=== PATIENT | male | born 1985 | race African-American/Black ===

== ENCOUNTER 2016-07-23 11:02 | Inpatient (IN) | payer OTHER ==
[2016-07-23 15:01] VITALS: BMI 22.8
--- NOTE | 2016-07-23 19:27 | HP ---
COWS - Scale Resting Pulse: 1= [place] 81-100 Sweatin= Chills/Flushing Restless Observation: 1= Difficult to Sit Still Pupil Size: 0= Normal to Room Light Bone or Joint Aches: 2= Severe Diffuse Aches Runny Nose/ Eye Tearin= Runny Nose/Eyes GI Upset > 30mins: 2= Nausea/Diarrhea Tremor Observation: 2= Slight Tremor Visible Yawning Observation: 2= >3x During Session Anxiety or Irritability: 2=Irritable/Anxious Goose Flesh Skin: 0=Smooth Skin COWS Score: 15 Admission ROS S - HPI Chief Complaint: WITHDRAWAL SX Allergies/Adverse Reactions: Allergies Allergy/AdvReac Type Severity Reaction Status Date / Time penicillin G Allergy Severe Hives Verified 07/23/16 17:17 chlorpromazine HCl Allergy Verified 07/23/16 19:26 [From Thorazine] haloperidol [From Haldol] Allergy Verified 07/23/16 19:26 haloperidol lactate Allergy Verified 07/23/16 19:26 [From Haldol] History of Present Illness: 31 YEARS OLD MALE WITH LONG HISTORY OF OPIOID MARIJUANA NICOTINE DEPENDENCE DENIES MEDICAL ISSUE HAS BIPOLAR II IS ADMITTED TO DETOX Exam Limitations: No Limitations - Ebola screening Have you traveled outside of the country in the last 21 days: No Have you had contact with anyone from an Ebola affected area: No Have you been sick,other than usual withdrawal symptoms: No Do you have a fever: No - Review of Systems Constitutional: Chills, Loss of Appetite, Changes in sleep, Unintentional Wgt. Loss, Unexplained wgt Loss EENT: reports: No Symptoms Reported Respiratory: reports: No Symptoms reported Cardiac: reports: No Symptoms Reported GI: reports: Nausea, Poor Appetite, Poor Fluid Intake, Abdominal cramping : reports: No Symptoms Reported Musculoskeletal: reports: Back Pain, Joint Pain, Muscle Pain, Neck Pain Integumentary: reports: No Symptoms Reported Neuro: reports: Tremors Endocrine: reports: No Symptoms Reported Hematology: reports: No Symptoms Reported Psychiatric: reports: Judgement Intact, Orientated x3, Anxious, Depressed Other Systems: Reviewed and Negative Patient History - Patient Medical History Hx Anemia: No Hx Asthma: No Hx Chronic Obstructive Pulmonary Disease (COPD): No Hx Cancer: No Hx Cardiac Disorders: No Hx Congestive Heart Failure: No Hx Hypertension: No Hx Hypercholesterolemia: No Hx Pacemaker: No HX Cerebrovascular Accident: No Hx Seizures: No Hx Dementia: No Hx Diabetes: No Hx Gastrointestinal Disorders: No Hx Liver Disease: No Hx Genitourinary Disorders: No Hx Sexually Transmitted Disorders: No Hx Renal Disease (ESRD): No Hx Thyroid Disease: No Hx Human Immunodeficiency Virus (HIV): No Hx Hepatitis C: No Hx Depression: No Hx Suicide Attempt: No Hx Bipolar Disorder: Yes Hx Schizophrenia: No - Patient Surgical History Past Surgical History: No Hx Neurologic Surgery: No Hx Cataract Extraction: No Hx Cardiac Surgery: No Hx Lung Surgery: No Hx Breast Surgery: No Hx Breast Biopsy: No Hx Abdominal Surgery: No Hx Appendectomy: No Hx Cholecystectomy: No Hx Genitourinary Surgery: No Hx Orthopedic Surgery: No - PPD History Previous Implant?: Yes Documented Results: Negative w/o proof Implanted On Prior R Admission?: No PPD to be Administered?: Yes - Smoking Cessation Smoking history: Current every day smoker Have you smoked in the past 12 months: Yes Aproximately how many cigarettes per day: 10 Cigars Per Day: 0 Hx Chewing Tobacco Use: No Initiated information on smoking cessation: Yes 'Breaking Loose' booklet given: 07/23/16 - Substance & Tx. History Hx Alcohol Use: No Hx Substance Use: Yes Substance Use Type: Heroin, Marijuana, Opiates Hx Substance Use Treatment: Yes - Substances Abused Heroin Route: Inhalation Frequency: Daily Amount used: 6-7 bags Age of first use: 31 Date of Last Use: 07/22/16 Marijuana Route: Smoking Frequency: Daily Amount used: $20 Age of first use: 19 Date of Last Use: 07/22/16 Family Disease History - Family Disease History Family Disease History: Heart Disease: Mother, Other: Father (NO CONTACT) Admission Physical Exam BHS - Vital Signs Vital Signs: Vital Signs - 24 hr 07/23/16 14:59 Temperature 98 F Pulse Rate 85 Respiratory 20 Rate Blood Pressure 121/69 - Physical General Appearance: Yes: Appropriately Dressed, Mild Distress, Thin, Tremorous, Irritable, Sweating, Anxious HEENTM: Yes: Hearing grossly Normal, Normal ENT Inspection, Normocephalic, Normal Voice Respiratory: Yes: Chest Non-Tender, Lungs Clear, Normal Breath Sounds, No Respiratory Distress, No Accessory Muscle Use Neck: Yes: Supple, Trachea in good position Breast: Yes: Breasts Symetrical Cardiology: Yes: Regular Rhythm, Regular Rate, S1, S2 Abdominal: Yes: Non Tender, Soft, Increased Bowel Sounds Genitourinary: Yes: Within Normal Limits Back: Yes: Normal Inspection Musculoskeletal: Yes: full range of Motion, Gait Steady, Back pain, Muscle Pain Extremities: Yes: Normal Inspection, Normal Range of Motion, Non-Tender, Tremors Neurological: Yes: Fully Oriented, Alert, Motor Strength 5/5, Normal Response, Depressed Affect Integumentary: Yes: Warm Lymphatic: Yes: Within Normal Limits - Diagnostic (1) Opioid dependence with withdrawal Current Visit: Yes Status: Acute (2) Nicotine dependence Current Visit: Yes Status: Acute Qualifiers: Nicotine product type: cigarettes Substance use status: in withdrawal Qualified Code(s): F17.213 - Nicotine dependence, cigarettes, with withdrawal (3) Weight loss Current Visit: Yes Status: Acute (4) Bipolar II disorder Current Visit: Yes Status: Suspected Cleared for Admission [facility] - Detox or Rehab [facility] Level of Care: Medically Managed Detox Regimen/Protocol: Methadone [facility] Breath Alcohol Content Breath Alcohol Content: 0 Urine Drug Screen - Results Drug Screen Negative: No Urine Drug Screen Results: THC-Marijuana, OPI-Opiates, MTD-Methadone
[2016-07-23] MEDS ORDERED: P-EPHED 60MG/TRIPROLIDI 2.5MG TABLET PO PRN (19:30)
[2016-07-23] MEDS ORDERED: LOPERAMIDE HCL 2 MG CAPSULE PO PRN (19:30)
[2016-07-23] MEDS ORDERED: MAGNESIUM HYDROX 2400MG/30ML ORAL SUSPENSION 30 ML CUP PO PRN (19:30)
[2016-07-23] MEDS ORDERED: MAG HYDROX/AL HYDROX/SIMETH 30 ML UNIT-DOSE CUP PO PRN (19:30)
[2016-07-23] MEDS ORDERED: guaiFENesin/D-METHORPHAN HB 10 ML UNIT-DOSE CUPS PO PRN (19:30)
[2016-07-23] MEDS ORDERED: METHADONE HCL 10 MG TABLET (FOR DETOX USE ONLY) PO ONE ×2 (19:30→23:00)
[2016-07-23] MEDS ORDERED: IBUPROFEN 400 MG TABLET (FP) PO PRN (19:30)
[2016-07-23] MEDS ORDERED: MAGNESIUM CITRATE 300 ML BOTTLE PO PRN (19:30)
[2016-07-23] MEDS ORDERED: ACETAMINOPHEN 325 MG TABLET (FP) PO PRN (19:30)
[2016-07-23] MEDS ORDERED: MENTHOL/PHENOL 1 EACH UD MM PRN (19:30)
[2016-07-23] MEDS ORDERED: NICOTINE POLACRILEX 2 MG GUM BUC PRN (19:30)
[2016-07-23] MEDS: THIAMINE HCL 100 MG TABLET (FP) PO SCH (21:17)
[2016-07-23] MEDS: diazePAM 5 MG TABLET PO PRN (21:18)
[2016-07-23] MEDS: diphenhydrAMINE HCL 50 MG CAPSULE PO PRN (22:34)
[2016-07-23 23:49] LABS: URINE APPEARANCE CLEAR; URINE BILIRUBIN NEGATIVE (NEGATIVE); URINE BLOOD NEGATIVE (NEGATIVE); URINE COLOR LTYELLOW; URINE GLUCOSE (UA) NEGATIVE (NEGATIVE); URINE KETONE NEGATIVE (NEGATIVE); URINE LEUK ESTERASE NEGATIVE (NEGATIVE); URINE NITRITE NEGATIVE (NEGATIVE); URINE PROTEIN NEGATIVE (NEGATIVE); URINE UROBILINOGEN NEGATIVE E.U./dl (0.2-1.0)
[2016-07-24] MEDS: diazePAM 5 MG TABLET PO PRN ×3 (05:21→22:19)
[2016-07-24] MEDS ORDERED: METHADONE HCL 10 MG TABLET (FOR DETOX USE ONLY) PO ONE (10:00)
[2016-07-24 10:03] LABS: MCH 29.3 pg (25.7-33.7); MCHC 33.2 g/dl (32.0-35.9); MEAN CELL VOLUME 88.4 fl (80-96); MEAN PLT VOLUME 11.1 fl (7.5-11.1); PLATELET COUNT 167 K/MM3 (134-434); RDW 14.1 % (11.9-15.9); WHITE BLOOD COUNT 5.8 K/mm3 (4.0-10.0)
[2016-07-24 10:18] LABS: SGOT/AST 41 U/L (15-37)
[2016-07-24 10:23] LABS: ALBUMIN 3.9 g/dl (3.4-5.0); ALK PHOS 96 U/L (45-117); ANION GAP 7 (8-16); BILIRUBIN,TOTAL 0.2 mg/dL (0.2-1.0); CALCIUM 8.6 mg/dL (8.5-10.1); CO2 28 mmol/L (21-32); COCKROFT - GAULT 120.43; CREATININE 0.9 mg/dL (0.7-1.3); GLUCOSE,RANDOM 106 mg/dL (74-106); SGPT/ALT 54 U/L (12-78)
[2016-07-24] MEDS: NICOTINE 14 MG/24 HOURS TOPICAL PATCH TD SCH (10:31)
[2016-07-24] MEDS: PRENATAL VITAMINS W/ FOLIC ACID TABLET (FP) PO SCH (10:31)
--- NOTE | 2016-07-24 12:20 | EKG ---
Test Reason : Blood Pressure : / mmHG Vent. Rate : 074 BPM Atrial Rate : 074 BPM P-R Int : 146 ms QRS Dur : 080 ms QT Int : 376 ms P-R-T Axes : 061 064 020 degrees QTc Int : 417 ms NORMAL SINUS RHYTHM POSSIBLE LEFT ATRIAL ENLARGEMENT BORDERLINE ECG NO PREVIOUS ECGS AVAILABLE Confirmed by MD GIORGIO, LEIA ([id number]) on 07/24/2016 12:19:29 PM Referred By: Binu Johnson Confirmed By:LEIA ALVARES MD
--- NOTE | 2016-07-24 16:01 | CONSULT ---
[id number] [facility] Identifying data: First admission to [facility] for this 31 y/o AA male seeking detox treatment for heroin and marijuana dependence.Patient is single,a father of three,domiciled,unemployed and supported on food stamps. Substance Abuse History: - Smoking Cessation. Smoking history: Current every day smoker. Have you smoked in the past 12 months: Yes. Aproximately how many cigarettes per day: 10. Cigars Per Day: 0. Hx Chewing Tobacco Use: No. Initiated information on smoking cessation: Yes. 'Breaking Loose' booklet given : 07/23/16. - Substance & Tx. History. Hx Alcohol Use: No. Hx Substance Use: Yes. Substance Use Type: Heroin, Marijuana, Opiates. Hx Substance Use Treatment: Yes. - Substances Abused. Heroin. Route: Inhalation. Frequency : Daily. Amount used: 6-7 bags. Age of first use: 31. Date of Last Use: 07/22. Marijuana. Route: Smoking. Frequency: Daily. Amount used: $20. Age of first use: 19. Date of Last Use: 07/22/16. Patient confirmed. Medical History: Patient endorses good general health. Psychiatric History: Diagnosed with Bipolar Disorder.Maintained on a regimen of prolixin,lexapro and vistaril (doses not recalled).Mr Naik reports that he gets his psychiatric OPD care at the [facility] in [facility].He admits to one psychiatric hospitalization (2010) at [facility].No history of suicide attempts. Physical/Sexual Abuse/Trauma History: Patient denies. Additional Comment: Urine Drug Screen Results: THC-Marijuana, OPI-Opiates, MTD- Methadone.Noted. Mental Status Exam - Mental Status Exam Alert and Oriented to: Time, Place, Person Cognitive Function: Good Patient Appearance: Well Groomed Mood: Nervous, Withdrawn Affect: Mood Congruent Patient Behavior: Fatigued, Appropriate, Cooperative Speech Pattern: Clear, Appropriate Voice Loudness: Normal Thought Process: Goal Oriented Thought Disorder: Not Present Hallucinations: Denies Suicidal Ideation: Denies Homicidal Ideation: Denies Insight/Judgement: Poor Sleep: Poorly, Difficulty falling asleep Appetite: Good Muscle strength/Tone: Normal Gait/Station: Normal Psychiatric Findings - Problem List ([place] 1, 2,3) (1) Opioid dependence with withdrawal Current Visit: Yes Status: Acute (2) Nicotine dependence Current Visit: Yes Status: Acute Qualifiers: Nicotine product type: cigarettes Substance use status: in withdrawal Qualified Code(s): F17.213 - Nicotine dependence, cigarettes, with withdrawal (3) Marihuana dependence Current Visit: Yes Status: Acute (4) Bipolar disorder Current Visit: Yes Status: Chronic (5) Weight loss Current Visit: Yes Status: Acute - Initial Treatment Plan Initial Treatment Plan: Psychoeducation.Detoxification.Medications : prolixin 5 mg po daily + 10 mg po hs + lexapro 10 mg po daily.Verified via survey of recent pharmacy claims of 07/06/16 @ [facility].Side effects/benefits discussed with patient.Made aware of potential for EPS (dystonias,akathisia,akinesia, dyskinesias),neuroleptic malignant syndrome,cardiac adverse events from utilization of prolixin and suicidal ideation/sexual dysfunction (lexapro) .Patient reports history of good tolerability/efficacious response to this combination.Eager to resume his medications.Agrees to this careplan.Observation.NO scripts needed at discharge (enough supply of medications available at home).
--- NOTE | 2016-07-24 18:41 | PN ---
BHS COWS - Scale Resting Pulse: 0= [place] 80 or Below Sweatin=Flushed/Facial Moisture Restless Observation: 1= Difficult to Sit Still Pupil Size: 0= Normal to Room Light Bone or Joint Aches: 2= Severe Diffuse Aches Runny Nose/ Eye Tearin= Runny Nose/Eyes GI Upset > 30mins: 2= Nausea/Diarrhea Tremor Observation of Outstretched Hands: 2= Slight Tremor Visible Yawning Observation: 1= 1-2x During Session Anxiety or Irritability: 2=Irritable/Anxious Goose Flesh Skin: 3=Pil[place] COWS Score: 17 BHS Progress Note (SOAP) Subjective: Nausea, Interrupted Sleep, Body Aches, Sweating. Objective: PT. A & O X 3, OBSERVED AMBULATING ON UNIT. 07/24/16 18:38 Vital Signs Temperature 96.7 F L 07/24/16 13:10 Pulse Rate 60 07/24/16 13:10 Respiratory Rate 18 07/24/16 13:10 Blood Pressure 113/73 07/24/16 13:10 O2 Sat by Pulse Oximetry (%) Laboratory Tests 07/23/16 07/24/16 07/24/16 23:40 06:00 06:00 WBC 5.8 RBC 4.54 Hgb 13.3 Hct 40.2 MCV 88.4 MCHC 33.2 RDW 14.1 Plt Count 167 MPV 11.1 Sodium 142 Potassium 4.4 Chloride 107 Carbon Dioxide 28 Anion Gap 7 L BUN 17 Creatinine 0.9 Creat Clearance w eGFR > 60 Random Glucose 106 Calcium 8.6 Total Bilirubin 0.2 AST 41 H ALT 54 Alkaline Phosphatase 96 Total Protein 7.0 Albumin 3.9 Urine Color Ltyellow Urine Appearance Clear Urine pH 6.0 Ur Specific [place] 1.020 Urine Protein Negative Urine Glucose (UA) Negative Urine Ketones Negative Urine Blood Negative Urine Nitrite Negative Urine Bilirubin Negative Urine Urobilinogen Negative Ur Leukocyte Esterase Negative RPR Titer 07/24/16 06:00 WBC RBC Hgb Hct MCV MCHC RDW Plt Count MPV Sodium Potassium Chloride Carbon Dioxide Anion Gap BUN Creatinine Creat Clearance w eGFR Random Glucose Calcium Total Bilirubin AST ALT Alkaline Phosphatase Total Protein Albumin Urine Color Urine Appearance Urine pH Ur Specific [place] Urine Protein Urine Glucose (UA) Urine Ketones Urine Blood Urine Nitrite Urine Bilirubin Urine Urobilinogen Ur Leukocyte Esterase RPR Titer Nonreactive LABS NOTED. Assessment: 07/24/16 18:39 WITHDRAWAL SYMPTOMS. Plan: CONTINUE DETOX.
[2016-07-24] MEDS: THIAMINE HCL 100 MG TABLET (FP) PO SCH (22:16)
[2016-07-25] MEDS: diazePAM 5 MG TABLET PO PRN ×2 (05:19→10:10)
[2016-07-25] MEDS ORDERED: METHADONE HCL 5 MG TABLET (FOR DETOX USE ONLY) PO ONE (10:00)
[2016-07-25] MEDS: PRENATAL VITAMINS W/ FOLIC ACID TABLET (FP) PO SCH (10:10)
[2016-07-25] MEDS: NICOTINE 14 MG/24 HOURS TOPICAL PATCH TD SCH (10:10)
[2016-07-25] MEDS: ESCITALOPRAM OXALATE 10 MG TABLET (FP) PO SCH (10:10)
--- NOTE | 2016-07-25 16:43 | PN ---
BHS COWS - Scale Resting Pulse: 0= [place] 80 or Below Sweatin=Flushed/Facial Moisture Restless Observation: 3= Extraneous Movement Pupil Size: 0= Normal to Room Light Bone or Joint Aches: 2= Severe Diffuse Aches Runny Nose/ Eye Tearin= Runny Nose/Eyes GI Upset > 30mins: 2= Nausea/Diarrhea Tremor Observation of Outstretched Hands: 2= Slight Tremor Visible Yawning Observation: 1= 1-2x During Session Anxiety or Irritability: 2=Irritable/Anxious Goose Flesh Skin: 0=Smooth Skin COWS Score: 16 BHS Progress Note (SOAP) Subjective: Sweating, tremor, nausea, diarrhea, interrupted sleep Objective: 07/25/16 16:42 Last Vital Signs Temp Pulse Resp BP Pulse Ox 97.7 F 65 18 108/70 07/25/16 13:45 07/25/16 13:45 07/25/16 13:45 07/25/16 13:45 Laboratory Tests 07/23/16 07/24/16 07/24/16 23:40 06:00 06:00 WBC 5.8 RBC 4.54 Hgb 13.3 Hct 40.2 MCV 88.4 MCHC 33.2 RDW 14.1 Plt Count 167 MPV 11.1 Sodium 142 Potassium 4.4 Chloride 107 Carbon Dioxide 28 Anion Gap 7 L BUN 17 Creatinine 0.9 Creat Clearance w eGFR > 60 Random Glucose 106 Calcium 8.6 Total Bilirubin 0.2 AST 41 H ALT 54 Alkaline Phosphatase 96 Total Protein 7.0 Albumin 3.9 Urine Color Ltyellow Urine Appearance Clear Urine pH 6.0 Ur Specific [place] 1.020 Urine Protein Negative Urine Glucose (UA) Negative Urine Ketones Negative Urine Blood Negative Urine Nitrite Negative Urine Bilirubin Negative Urine Urobilinogen Negative Ur Leukocyte Esterase Negative RPR Titer 07/24/16 06:00 WBC RBC Hgb Hct MCV MCHC RDW Plt Count MPV Sodium Potassium Chloride Carbon Dioxide Anion Gap BUN Creatinine Creat Clearance w eGFR Random Glucose Calcium Total Bilirubin AST ALT Alkaline Phosphatase Total Protein Albumin Urine Color Urine Appearance Urine pH Ur Specific [place] Urine Protein Urine Glucose (UA) Urine Ketones Urine Blood Urine Nitrite Urine Bilirubin Urine Urobilinogen Ur Leukocyte Esterase RPR Titer Nonreactive Labs noted Assessment: 07/25/16 16:42 Withdrawal symptoms Plan: Continue detox, encouraged to drink more water
[2016-07-25] MEDS: diphenhydrAMINE HCL 50 MG CAPSULE PO PRN (22:16)
[2016-07-25] MEDS: THIAMINE HCL 100 MG TABLET (FP) PO SCH (22:16)
[2016-07-26] MEDS: diazePAM 5 MG TABLET PO PRN (05:57)
[2016-07-26] MEDS ORDERED: METHADONE HCL 5 MG TABLET (FOR DETOX USE ONLY) PO ONE (10:00)
[2016-07-26] MEDS: PRENATAL VITAMINS W/ FOLIC ACID TABLET (FP) PO SCH (10:21)
[2016-07-26] MEDS: NICOTINE 14 MG/24 HOURS TOPICAL PATCH TD SCH (10:22)
[2016-07-26] MEDS: ESCITALOPRAM OXALATE 10 MG TABLET (FP) PO SCH (10:22)
[2016-07-26] MEDS ORDERED: ONDANSETRON *ODT* 4 MG TABLET SL PRN (13:07)
--- NOTE | 2016-07-26 13:09 | PN ---
BHS Progress Note (SOAP) Subjective: Stomach Cramping, Body aches, Sweating, Nausea, Fatigue, Interrupted Sleep. Objective: PT. A & O X 2 (DISORIENTED ABOUT DAY / DATE). PT. OBSERVED AMBULATING ON UNIT. 07/26/16 13:05 Vital Signs Temperature 98.0 F 07/26/16 09:54 Pulse Rate 74 07/26/16 09:54 Respiratory Rate 18 07/26/16 09:54 Blood Pressure 109/73 07/26/16 09:54 O2 Sat by Pulse Oximetry (%) Laboratory Tests 07/23/16 07/24/16 07/24/16 23:40 06:00 06:00 WBC 5.8 RBC 4.54 Hgb 13.3 Hct 40.2 MCV 88.4 MCHC 33.2 RDW 14.1 Plt Count 167 MPV 11.1 Sodium 142 Potassium 4.4 Chloride 107 Carbon Dioxide 28 Anion Gap 7 L BUN 17 Creatinine 0.9 Creat Clearance w eGFR > 60 Random Glucose 106 Calcium 8.6 Total Bilirubin 0.2 AST 41 H ALT 54 Alkaline Phosphatase 96 Total Protein 7.0 Albumin 3.9 Urine Color Ltyellow Urine Appearance Clear Urine pH 6.0 Ur Specific [place] 1.020 Urine Protein Negative Urine Glucose (UA) Negative Urine Ketones Negative Urine Blood Negative Urine Nitrite Negative Urine Bilirubin Negative Urine Urobilinogen Negative Ur Leukocyte Esterase Negative RPR Titer 07/24/16 06:00 WBC RBC Hgb Hct MCV MCHC RDW Plt Count MPV Sodium Potassium Chloride Carbon Dioxide Anion Gap BUN Creatinine Creat Clearance w eGFR Random Glucose Calcium Total Bilirubin AST ALT Alkaline Phosphatase Total Protein Albumin Urine Color Urine Appearance Urine pH Ur Specific [place] Urine Protein Urine Glucose (UA) Urine Ketones Urine Blood Urine Nitrite Urine Bilirubin Urine Urobilinogen Ur Leukocyte Esterase RPR Titer Nonreactive LABS NOTED. Assessment: 07/26/16 13:06 WITHDRAWAL SYMPTOMS. Plan: CONTINUE DETOX. PRN ZOFRAN SL FOR NAUSEA.
[2016-07-26] MEDS: THIAMINE HCL 100 MG TABLET (FP) PO SCH (22:20)
[2016-07-26] MEDS: diphenhydrAMINE HCL 50 MG CAPSULE PO PRN (22:21)
[2016-07-27] MEDS ORDERED: METHADONE HCL 10 MG TABLET (FOR DETOX USE ONLY) PO ONE (10:00)
[2016-07-27] MEDS: PRENATAL VITAMINS W/ FOLIC ACID TABLET (FP) PO SCH (10:18)
[2016-07-27] MEDS: ESCITALOPRAM OXALATE 10 MG TABLET (FP) PO SCH (10:19)
[2016-07-27] MEDS: NICOTINE 14 MG/24 HOURS TOPICAL PATCH TD SCH (10:19)
--- NOTE | 2016-07-27 12:21 | PN ---
BHS Progress Note (SOAP) Subjective: Sweating,interrupted sleep,restless Objective: 07/27/16 12:20 Vital Signs - 8 hr 07/27/16 07/27/16 06:24 09:59 Temperature 98.6 F 978.1 F H Pulse Rate 57 L 64 Respiratory 16 19 Rate Blood Pressure 93/62 105/72 Laboratory Tests 07/23/16 07/24/16 07/24/16 23:40 06:00 06:00 WBC 5.8 RBC 4.54 Hgb 13.3 Hct 40.2 MCV 88.4 MCHC 33.2 RDW 14.1 Plt Count 167 MPV 11.1 Sodium 142 Potassium 4.4 Chloride 107 Carbon Dioxide 28 Anion Gap 7 L BUN 17 Creatinine 0.9 Creat Clearance w eGFR > 60 Random Glucose 106 Calcium 8.6 Total Bilirubin 0.2 AST 41 H ALT 54 Alkaline Phosphatase 96 Total Protein 7.0 Albumin 3.9 Urine Color Ltyellow Urine Appearance Clear Urine pH 6.0 Ur Specific [place] 1.020 Urine Protein Negative Urine Glucose (UA) Negative Urine Ketones Negative Urine Blood Negative Urine Nitrite Negative Urine Bilirubin Negative Urine Urobilinogen Negative Ur Leukocyte Esterase Negative RPR Titer 07/24/16 06:00 WBC RBC Hgb Hct MCV MCHC RDW Plt Count MPV Sodium Potassium Chloride Carbon Dioxide Anion Gap BUN Creatinine Creat Clearance w eGFR Random Glucose Calcium Total Bilirubin AST ALT Alkaline Phosphatase Total Protein Albumin Urine Color Urine Appearance Urine pH Ur Specific [place] Urine Protein Urine Glucose (UA) Urine Ketones Urine Blood Urine Nitrite Urine Bilirubin Urine Urobilinogen Ur Leukocyte Esterase RPR Titer Nonreactive labs noted Assessment: 07/27/16 12:21 Withdrawal sx. Plan: Continue detox
[2016-07-27] MEDS: THIAMINE HCL 100 MG TABLET (FP) PO SCH (23:13)
[2016-07-27] MEDS: diphenhydrAMINE HCL 50 MG CAPSULE PO PRN (23:14)
[2016-07-28] MEDS ORDERED: METHADONE HCL 5 MG TABLET (FOR DETOX USE ONLY) PO ONE (06:00)
[2016-07-28 09:34] VITALS: BP 97/65; PULSE 65; TEMP 97.6
--- NOTE | 2016-07-28 13:25 | DS ---
[facility] Detox Discharge Summary Admission Date: 07/23/16 Discharge Date: 07/28/16 - History Present History: Cannabis Dependence, Opioid Dependence Additional Comments: DETOX COMPLETED. ALERT O X 3. NAD. Pertinent Past History: WEIGHT LOSS. HX DEPRESSION - Physical Exam Results Vital Signs: Vital Signs Temperature 97.6 F 07/28/16 09:33 Pulse Rate 65 07/28/16 09:33 Respiratory Rate 18 07/28/16 09:33 Blood Pressure 97/65 07/28/16 09:33 O2 Sat by Pulse Oximetry (%) Pertinent Admission Physical Exam Findings: WITHDRAWAL SX - Treatment Hospital Course: Detox Protocol Followed, Detoxed Safely, Responded well, Discharged Condition Good - Medication Discharge Medications: Ambulatory Orders Escitalopram Oxalate [Lexapro -] 10 mg PO DAILY 07/23/16 Fluphenazine HCl [Prolixin -] 10 mg PO TID 07/23/16 Hydroxyzine Pamoate [Vistaril -] 25 mg PO DAILY PRN 07/23/16 - Diagnosis (1) Marihuana dependence Status: Acute (2) Nicotine dependence Status: Acute Qualifiers: Nicotine product type: cigarettes Substance use status: in withdrawal Qualified Code(s): F17.213 - Nicotine dependence, cigarettes, with withdrawal (3) Opioid dependence with withdrawal Status: Acute (4) Weight loss Status: Acute - AMA Did Patient Leave Against Medical Advice: No
== END 2016-07-28 09:05 | disposition home or self-care (01) | DRG 773 ==
LOC: YASAS 11:02 → Y3N 17:52
PROVIDERS: ADMIT Internal Medicine; ATTEND Internal Medicine
PROC: HZ2ZZZZ Detoxification Services for Substance Abuse Treatment (ICD-10-PCS; principal; 2016-07-23)
DX: F11.23 Opioid dependence with withdrawal (principal); F12.20 Cannabis dependence, uncomplicated; F17.213 Nicotine dependence, cigarettes, with withdrawal; F31.81 Bipolar II disorder; Z87.898 Personal history of other specified conditions
CPT/HCPCS: 36415; 80053; 81003; 85027; 86593; 93005; 93010

== ENCOUNTER 2016-07-30 10:54 | Inpatient (IN) | payer OTHER ==
[2016-07-30 14:22] VITALS: BMI 22.8
[2016-07-30] MEDS ORDERED: ACETAMINOPHEN 325 MG TABLET (FP) PO PRN (16:39)
[2016-07-30] MEDS ORDERED: P-EPHED 60MG/TRIPROLIDI 2.5MG TABLET PO PRN (16:39)
[2016-07-30] MEDS ORDERED: NICOTINE POLACRILEX 2 MG GUM BUC PRN (16:39)
[2016-07-30] MEDS ORDERED: MAGNESIUM CITRATE 300 ML BOTTLE PO PRN (16:39)
[2016-07-30] MEDS ORDERED: MAG HYDROX/AL HYDROX/SIMETH 30 ML UNIT-DOSE CUP PO PRN (16:39)
[2016-07-30] MEDS ORDERED: IBUPROFEN 400 MG TABLET (FP) PO PRN (16:39)
[2016-07-30] MEDS ORDERED: LOPERAMIDE HCL 2 MG CAPSULE PO PRN (16:39)
[2016-07-30] MEDS ORDERED: guaiFENesin/D-METHORPHAN HB 10 ML UNIT-DOSE CUPS PO PRN (16:39)
[2016-07-30] MEDS ORDERED: MENTHOL/PHENOL 1 EACH UD MM PRN (16:39)
--- NOTE | 2016-07-30 16:39 | HP ---
[facility] Rehab Assess/Revision - Admission History Admitted to Rehab from: [facility] Date of Admission to Rehab: 07/30/16 - Vital signs Vital Signs: Vital Signs Period Temp Pulse Resp BP Sys/[place] Pulse Ox Last 24 Hr 96.4 F 92 20 142/82 - Findings Detox History & Physical reviewed: Yes Concur with findings: Yes Comments/Additional Findings: completed detox wait for bed available, admitted to rehab
[2016-07-30] MEDS: THIAMINE HCL 100 MG TABLET (FP) PO SCH (21:11)
[2016-07-30] MEDS: hydrOXYzine PAMOATE 50 MG CAPSULE (FP) PO PRN (21:12)
[2016-07-31] MEDS: NICOTINE 14 MG/24 HOURS TOPICAL PATCH TD SCH (09:33)
[2016-07-31] MEDS: PRENATAL VITAMINS W/ FOLIC ACID TABLET (FP) PO SCH (09:33)
[2016-07-31] MEDS ORDERED: risperiDONE 1 MG TABLET (FP) PO SCH (10:45)
[2016-07-31] MEDS: hydrOXYzine PAMOATE 50 MG CAPSULE (FP) PO PRN (11:09)
[2016-07-31] MEDS: ESCITALOPRAM OXALATE 10 MG TABLET (FP) PO SCH (13:10)
[2016-07-31] MEDS: MAGNESIUM HYDROX 2400MG/30ML ORAL SUSPENSION 30 ML CUP PO PRN (20:12)
[2016-07-31] MEDS: THIAMINE HCL 100 MG TABLET (FP) PO SCH (21:01)
[2016-07-31] MEDS: diphenhydrAMINE HCL 50 MG CAPSULE PO PRN (21:02)
[2016-08-01] MEDS: ESCITALOPRAM OXALATE 10 MG TABLET (FP) PO SCH (09:43)
[2016-08-01] MEDS: NICOTINE 14 MG/24 HOURS TOPICAL PATCH TD SCH (09:43)
[2016-08-01] MEDS: PRENATAL VITAMINS W/ FOLIC ACID TABLET (FP) PO SCH (09:43)
[2016-08-01] MEDS: MAGNESIUM HYDROX 2400MG/30ML ORAL SUSPENSION 30 ML CUP PO PRN (17:14)
[2016-08-01] MEDS: diphenhydrAMINE HCL 50 MG CAPSULE PO PRN (21:09)
[2016-08-01] MEDS: THIAMINE HCL 100 MG TABLET (FP) PO SCH (21:09)
[2016-08-02] MEDS: PRENATAL VITAMINS W/ FOLIC ACID TABLET (FP) PO SCH (09:33)
[2016-08-02] MEDS: ESCITALOPRAM OXALATE 10 MG TABLET (FP) PO SCH (09:33)
[2016-08-02] MEDS: NICOTINE 14 MG/24 HOURS TOPICAL PATCH TD SCH (09:33)
[2016-08-02] MEDS: THIAMINE HCL 100 MG TABLET (FP) PO SCH (21:12)
[2016-08-02] MEDS: diphenhydrAMINE HCL 50 MG CAPSULE PO PRN (21:12)
[2016-08-03] MEDS: hydrOXYzine PAMOATE 50 MG CAPSULE (FP) PO PRN (06:06)
[2016-08-03] MEDS: ESCITALOPRAM OXALATE 10 MG TABLET (FP) PO SCH (09:38)
[2016-08-03] MEDS: PRENATAL VITAMINS W/ FOLIC ACID TABLET (FP) PO SCH (09:38)
[2016-08-03] MEDS: NICOTINE 14 MG/24 HOURS TOPICAL PATCH TD SCH (09:38)
--- NOTE | 2016-08-03 10:53 | HP ---
Psychiatrist Admission - Data Date of interview: 08/03/16 Admission source: 3N Identifying data: This is the first 5N inpatient rehabilitation admission for this 31 year old single black male father of 3, residing with his parents and 7 year old son in [place]. Medical History: Patient reports a good health, smokes cigarettes 7 a day. Psychiatric History: Patient is tearful during ealuations, reports he wants to leave treatment and misses his family and his son, patient was encouraged to stay and focus o n his recovery, reports he needs to speck with his penal officer. Patient was diagnosed with Bipolar I disorder, first psychiatric contact and treatment at age of 9 for ADHD , reports was under the medications from age 9 to 16. He reports one psychiatric hospitalization in 2010 at [facility]. Current medications Prolixin, Vistaril and Lexapro, seen by and continued his medications. Physical/Sexual Abuse/Trauma History: Denies history of sexual, physical and verbal abuse. Vital Signs: Vital Signs - 24 hr 08/03/16 08/03/16 08/03/16 00:30 03:30 06:46 Temperature 98.9 F Pulse Rate 75 Respiratory 16 16 16 Rate Blood Pressure 123/80 Allergies/Adverse Reactions: Allergies Allergy/AdvReac Type Severity Reaction Status Date / Time penicillin G Allergy Severe Hives Verified 07/23/16 17:17 chlorpromazine HCl Allergy Verified 07/23/16 19:26 [From Thorazine] haloperidol [From Haldol] Allergy Verified 07/23/16 19:26 haloperidol lactate Allergy Verified 07/23/16 19:26 [From Haldol] Date of last physical exam: 07/23/16 Concur with the findings of this exam: Yes - Substance Abuse/Tx History Hx Alcohol Use: No Hx Substance Use: Yes Substance Use Type: Heroin (5-7 bags daily), Marijuana ($20 daily) Hx Substance Use Treatment: Yes (J opd) - Admission Criteria Previous failed treatment: Yes Poor recovery environment: Yes Comorbidities: Yes Lacks judgement: Yes Mental Status Exam - Mental Status Exam Alert and Oriented to: Time, Place, Person Cognitive Function: Good Patient Appearance: Well Groomed Mood: Sad, Anxious Affect: Mood Congruent Patient Behavior: Crying, Appropriate, Cooperative Speech Pattern: Clear, Appropriate Voice Loudness: Normal Thought Process: Intact, Goal Oriented Thought Disorder: Not Present Hallucinations: Denies Suicidal Ideation: Denies Homicidal Ideation: Denies Insight/Judgement: Fair Sleep: Fair Appetite: Fair Muscle strength/Tone: Normal Gait/Station: Normal Psychiatric Findings - Problem List ([place] 1, 2,3) (1) Marihuana dependence Current Visit: No Status: Acute (2) Nicotine dependence Current Visit: No Status: Acute Qualifiers: Nicotine product type: cigarettes Substance use status: in withdrawal Qualified Code(s): F17.213 - Nicotine dependence, cigarettes, with withdrawal (3) Bipolar I disorder, most recent episode depressed Current Visit: Yes Status: Acute (4) Opioid dependence Current Visit: Yes Status: Acute - Initial Treatment Plan Initial Treatment Plan: Will continue his current medications, monitor progress as needed.
[2016-08-03] MEDS: diphenhydrAMINE HCL 50 MG CAPSULE PO PRN (21:06)
[2016-08-03] MEDS: THIAMINE HCL 100 MG TABLET (FP) PO SCH (21:06)
[2016-08-04] MEDS: PRENATAL VITAMINS W/ FOLIC ACID TABLET (FP) PO SCH (09:34)
[2016-08-04] MEDS: ESCITALOPRAM OXALATE 10 MG TABLET (FP) PO SCH (09:34)
[2016-08-04] MEDS: NICOTINE 14 MG/24 HOURS TOPICAL PATCH TD SCH (09:34)
[2016-08-04] MEDS: THIAMINE HCL 100 MG TABLET (FP) PO SCH (21:08)
[2016-08-04] MEDS: diphenhydrAMINE HCL 50 MG CAPSULE PO PRN (21:09)
[2016-08-05] MEDS: ESCITALOPRAM OXALATE 10 MG TABLET (FP) PO SCH (09:37)
[2016-08-05] MEDS: PRENATAL VITAMINS W/ FOLIC ACID TABLET (FP) PO SCH (09:37)
[2016-08-05] MEDS: hydrOXYzine PAMOATE 50 MG CAPSULE (FP) PO PRN (09:38)
[2016-08-05] MEDS: NICOTINE 14 MG/24 HOURS TOPICAL PATCH TD SCH (09:38)
[2016-08-05] MEDS: THIAMINE HCL 100 MG TABLET (FP) PO SCH (21:06)
[2016-08-05] MEDS: diphenhydrAMINE HCL 50 MG CAPSULE PO PRN (21:07)
[2016-08-06] MEDS: NICOTINE 14 MG/24 HOURS TOPICAL PATCH TD SCH (09:34)
[2016-08-06] MEDS: ESCITALOPRAM OXALATE 10 MG TABLET (FP) PO SCH (09:34)
[2016-08-06] MEDS: PRENATAL VITAMINS W/ FOLIC ACID TABLET (FP) PO SCH (09:34)
[2016-08-06] MEDS: THIAMINE HCL 100 MG TABLET (FP) PO SCH (21:07)
[2016-08-06] MEDS: diphenhydrAMINE HCL 50 MG CAPSULE PO PRN (21:08)
[2016-08-07] MEDS: NICOTINE 14 MG/24 HOURS TOPICAL PATCH TD SCH (09:33)
[2016-08-07] MEDS: PRENATAL VITAMINS W/ FOLIC ACID TABLET (FP) PO SCH (09:33)
[2016-08-07] MEDS: ESCITALOPRAM OXALATE 10 MG TABLET (FP) PO SCH (09:33)
[2016-08-07] MEDS: hydrOXYzine PAMOATE 50 MG CAPSULE (FP) PO PRN (09:33)
[2016-08-07] MEDS: diphenhydrAMINE HCL 50 MG CAPSULE PO PRN (21:06)
[2016-08-07] MEDS: THIAMINE HCL 100 MG TABLET (FP) PO SCH (21:06)
[2016-08-08] MEDS: hydrOXYzine PAMOATE 50 MG CAPSULE (FP) PO PRN (09:37)
[2016-08-08] MEDS: ESCITALOPRAM OXALATE 10 MG TABLET (FP) PO SCH (09:37)
[2016-08-08] MEDS: PRENATAL VITAMINS W/ FOLIC ACID TABLET (FP) PO SCH (09:37)
[2016-08-08] MEDS: NICOTINE 14 MG/24 HOURS TOPICAL PATCH TD SCH (09:38)
[2016-08-08] MEDS: diphenhydrAMINE HCL 50 MG CAPSULE PO PRN (21:07)
[2016-08-08] MEDS: THIAMINE HCL 100 MG TABLET (FP) PO SCH (21:07)
[2016-08-09] MEDS: ESCITALOPRAM OXALATE 10 MG TABLET (FP) PO SCH (09:38)
[2016-08-09] MEDS: PRENATAL VITAMINS W/ FOLIC ACID TABLET (FP) PO SCH (09:38)
[2016-08-09] MEDS: NICOTINE 14 MG/24 HOURS TOPICAL PATCH TD SCH (09:39)
[2016-08-09] MEDS: diphenhydrAMINE HCL 50 MG CAPSULE PO PRN (21:02)
[2016-08-09] MEDS: THIAMINE HCL 100 MG TABLET (FP) PO SCH (21:02)
[2016-08-10] MEDS: PRENATAL VITAMINS W/ FOLIC ACID TABLET (FP) PO SCH (09:33)
[2016-08-10] MEDS: NICOTINE 14 MG/24 HOURS TOPICAL PATCH TD SCH (09:33)
[2016-08-10] MEDS: ESCITALOPRAM OXALATE 10 MG TABLET (FP) PO SCH (09:33)
--- NOTE | 2016-08-10 15:04 | PN ---
Psychiatric Progress Note Vital Signs: Vital Signs Period Temp Pulse Resp BP Sys/[place] Pulse Ox Last 24 Hr 98.3 F 91 16-18 127/75 Date of Session: 08/10/16 Chief Complaint:: "depressed" HPI: Patient is addressing opioid, cannabis, nicotine dependence comorbid Bipolar I disorder, most recent epsiode depressed. ROS: WNL Current Medications: Active Medications Generic Name Dose Route Start Last Admin Trade Name Freq PRN Reason Stop Dose Admin Acetaminophen 650 mg 07/30/16 16:39 Tylenol - PO Q4H PRN FEVER OR PAIN Al Hydroxide/Mg Hydroxide 30 ml 07/30/16 16:39 Mylanta Oral Suspension - PO Q6H PRN DYSPEPSIA Diphenhydramine HCl 50 mg 07/30/16 16:39 08/09/16 21:02 Benadryl - PO 50 mg HSMR1 PRN Administration FOR ITCHING Escitalopram Oxalate 20 mg 08/10/16 14:58 Lexapro - PO DAILY LUIS ENRIQUE Eucalyptus/Menthol/Phenol/Sorbitol 1 each 07/30/16 16:39 Cepastat Lozenge - MM Q4H PRN SORE THROAT Fluphenazine HCl 10 mg 07/31/16 14:00 08/10/16 14:12 Prolixin - PO 10 mg TID LUIS ENRIQUE Administration Guaifenesin 10 ml 07/30/16 16:39 Robitussin Dm - PO Q6H PRN COUGH Hydroxyzine Pamoate 50 mg 07/30/16 16:39 08/08/16 09:37 Vistaril - PO 50 mg Q4H PRN Administration AGITATION Ibuprofen 400 mg 07/30/16 16:39 Motrin - PO Q6H PRN PAIN Loperamide HCl 4 mg 07/30/16 16:39 Imodium - PO Q6H PRN DIARRHEA Magnesium Hydroxide 30 ml 07/30/16 16:39 08/01/16 17:14 Milk Of Magnesia - PO 30 ml DAILY PRN Administration CONSTIPATION Nicotine 14 mg 07/31/16 10:00 08/10/16 09:33 Nicoderm Patch - TD Not Given DAILY LUIS ENRIQUE Nicotine Polacrilex 2 mg 07/30/16 16:39 07/30/16 21:13 Nicorette Gum - BUC 2 mg Q2H PRN Administration NICOTINE REPLACEMENT RX Multivit/Folic Acid/Iron 1 tab 07/31/16 10:00 08/10/16 09:33 Vitamins (Sjr) - PO 1 tab DAILY LUIS ENRIQUE Administration Pseudoephedrine/Triprolidine 1 combo 07/30/16 16:39 Actifed - PO TID PRN NASAL CONGESTION Thiamine HCl 100 mg 07/30/16 22:00 08/09/16 21:02 Vitamin B1 - PO 100 mg HS LUIS ENRIQUE Administration Current Side Effect: No Lab tests ordered: No Lab tests reviewed: Yes Provider note:: Patient adjusted to the unit, at the begining he had urges to leave treatment but after intervention continued treatment. Patient reports has been feeling depressed, low energy and has poor inerrupted sleep. Reviewed his current and past medications, discusssed indications and properties each of them , Miriam discussed, patient agreed to take, will increase Lexapro. Supportive therapy and psychoeducation provided, will continue to monitor progress. Total face to face time:: 35 Mental Status Exam - Mental Status Exam Alert and Oriented to: Time, Place, Person Cognitive Function: Good Patient Appearance: Well Groomed Mood: Depressed, Sad, Anxious Affect: Appropriate, Mood Congruent Patient Behavior: Appropriate, Cooperative Speech Pattern: Clear, Appropriate Voice Loudness: Normal Thought Process: Intact, Goal Oriented Thought Disorder: Not Present Hallucinations: Denies Suicidal Ideation: Denies Homicidal Ideation: Denies Insight/Judgement: Fair Sleep: Poorly, Difficulty falling asleep Appetite: Fair Muscle strength/Tone: Normal, Moderate Hypotonicity Psychiatric Treatment Plan - Problem List (1) Marihuana dependence Current Visit: No (2) Nicotine dependence Current Visit: No Qualifiers: Nicotine product type: cigarettes Substance use status: in withdrawal Qualified Code(s): F17.213 - Nicotine dependence, cigarettes, with withdrawal (3) Bipolar I disorder, most recent episode depressed Current Visit: Yes (4) Opioid dependence Current Visit: Yes
[2016-08-10] MEDS: THIAMINE HCL 100 MG TABLET (FP) PO SCH (21:03)
[2016-08-10] MEDS: diphenhydrAMINE HCL 50 MG CAPSULE PO PRN (21:03)
[2016-08-11] MEDS: ESCITALOPRAM OXALATE 20 MG TABLET (FP) PO SCH (10:00)
[2016-08-11] MEDS: PRENATAL VITAMINS W/ FOLIC ACID TABLET (FP) PO SCH (10:00)
[2016-08-11] MEDS: NICOTINE 14 MG/24 HOURS TOPICAL PATCH TD SCH (10:00)
[2016-08-11] MEDS: THIAMINE HCL 100 MG TABLET (FP) PO SCH (21:05)
[2016-08-11] MEDS: diphenhydrAMINE HCL 50 MG CAPSULE PO PRN (21:05)
[2016-08-11] MEDS: SUVOREXANT 10 MG TABLET PO PRN (21:05)
[2016-08-11] MEDS ORDERED: PT OWN MED DRAWER 7, Y5N ONE (22:13)
[2016-08-12] MEDS: ESCITALOPRAM OXALATE 20 MG TABLET (FP) PO SCH (10:01)
[2016-08-12] MEDS: PRENATAL VITAMINS W/ FOLIC ACID TABLET (FP) PO SCH (10:02)
[2016-08-12] MEDS: NICOTINE 14 MG/24 HOURS TOPICAL PATCH TD SCH (10:02)
[2016-08-12] MEDS: THIAMINE HCL 100 MG TABLET (FP) PO SCH (21:05)
[2016-08-12] MEDS: SUVOREXANT 10 MG TABLET PO PRN (21:06)
[2016-08-12] MEDS: diphenhydrAMINE HCL 50 MG CAPSULE PO PRN (21:07)
[2016-08-13] MEDS: ESCITALOPRAM OXALATE 20 MG TABLET (FP) PO SCH (09:43)
[2016-08-13] MEDS: PRENATAL VITAMINS W/ FOLIC ACID TABLET (FP) PO SCH (09:43)
[2016-08-13] MEDS: hydrOXYzine PAMOATE 50 MG CAPSULE (FP) PO PRN (09:43)
[2016-08-13] MEDS: NICOTINE 14 MG/24 HOURS TOPICAL PATCH TD SCH (09:44)
[2016-08-13] MEDS: THIAMINE HCL 100 MG TABLET (FP) PO SCH (21:08)
[2016-08-13] MEDS: diphenhydrAMINE HCL 50 MG CAPSULE PO PRN (21:08)
[2016-08-13] MEDS: SUVOREXANT 10 MG TABLET PO PRN (21:09)
[2016-08-14] MEDS: PRENATAL VITAMINS W/ FOLIC ACID TABLET (FP) PO SCH (09:32)
[2016-08-14] MEDS: ESCITALOPRAM OXALATE 20 MG TABLET (FP) PO SCH (09:32)
[2016-08-14] MEDS: NICOTINE 14 MG/24 HOURS TOPICAL PATCH TD SCH (09:32)
[2016-08-14] MEDS: THIAMINE HCL 100 MG TABLET (FP) PO SCH (21:05)
[2016-08-14] MEDS: diphenhydrAMINE HCL 50 MG CAPSULE PO PRN (21:06)
[2016-08-15] MEDS: ESCITALOPRAM OXALATE 20 MG TABLET (FP) PO SCH (09:42)
[2016-08-15] MEDS: PRENATAL VITAMINS W/ FOLIC ACID TABLET (FP) PO SCH (09:42)
[2016-08-15] MEDS: NICOTINE 14 MG/24 HOURS TOPICAL PATCH TD SCH (09:43)
[2016-08-15] MEDS: THIAMINE HCL 100 MG TABLET (FP) PO SCH (21:03)
[2016-08-15] MEDS: diphenhydrAMINE HCL 50 MG CAPSULE PO PRN (21:03)
[2016-08-16 06:52] VITALS: BP 125/77; PULSE 74; TEMP 98.2
--- NOTE | 2016-08-16 09:45 | PN ---
Psychiatric Progress Note Vital Signs: Vital Signs Period Temp Pulse Resp BP Sys/Eaton Pulse Ox Last 24 Hr 98.2 F 74 16-18 125/77 Date of Session: 08/16/16 Chief Complaint:: discharge visit HPI: Patient is addressing opioid, cannabis, nicotine dependence comorbid Bipolar I disorder, most recent epsiode depressed. Current Medications: Active Medications Generic Name Dose Route Start Last Admin Trade Name Freq PRN Reason Stop Dose Admin Acetaminophen 650 mg 07/30/16 16:39 Tylenol - PO Q4H PRN FEVER OR PAIN Al Hydroxide/Mg Hydroxide 30 ml 07/30/16 16:39 Mylanta Oral Suspension - PO Q6H PRN DYSPEPSIA Diphenhydramine HCl 50 mg 07/30/16 16:39 08/15/16 21:03 Benadryl - PO 50 mg HSMR1 PRN Administration FOR ITCHING Escitalopram Oxalate 20 mg 08/11/16 10:00 08/15/16 09:42 Lexapro - PO 20 mg DAILY LUIS ENRIQUE Administration Eucalyptus/Menthol/Phenol/Sorbitol 1 each 07/30/16 16:39 Cepastat Lozenge - MM Q4H PRN SORE THROAT Fluphenazine HCl 10 mg 07/31/16 14:00 08/16/16 06:15 Prolixin - PO 10 mg TID LUIS ENRIQUE Administration Guaifenesin 10 ml 07/30/16 16:39 Robitussin Dm - PO Q6H PRN COUGH Hydroxyzine Pamoate 50 mg 07/30/16 16:39 08/13/16 09:43 Vistaril - PO 50 mg Q4H PRN Administration AGITATION Ibuprofen 400 mg 07/30/16 16:39 Motrin - PO Q6H PRN PAIN Loperamide HCl 4 mg 07/30/16 16:39 Imodium - PO Q6H PRN DIARRHEA Magnesium Hydroxide 30 ml 07/30/16 16:39 08/01/16 17:14 Milk Of Magnesia - PO 30 ml DAILY PRN Administration CONSTIPATION Nicotine 14 mg 07/31/16 10:00 08/15/16 09:43 Nicoderm Patch - TD Not Given DAILY LUIS ENRIQUE Nicotine Polacrilex 2 mg 07/30/16 16:39 07/30/16 21:13 Nicorette Gum - BUC 2 mg Q2H PRN Administration NICOTINE REPLACEMENT RX Multivit/Folic Acid/Iron 1 tab 07/31/16 10:00 08/15/16 09:42 Vitamins (Sjr) - PO 1 tab DAILY LUIS ENRIQUE Administration Pseudoephedrine/Triprolidine 1 combo 07/30/16 16:39 Actifed - PO TID PRN NASAL CONGESTION Thiamine HCl 100 mg 07/30/16 22:00 08/15/16 21:03 Vitamin B1 - PO 100 mg HS LUIS ENRIQUE Administration Current Side Effect: No Lab tests ordered: No Lab tests reviewed: Yes Provider note:: Patient has completed today his treatment and met his goals, will continue to address his issues at next level of care. Patient verbalized understanding of the importance changing attitudes for the utilization of supports to prevent relapses. PAtient reports he feels much bettr with medications adjustment, Prolixin and Lexapro well tolerated, scripts for 30 days supply provided, patient was encouraged to continue maintain abstience, take medications as direceted, patient is stable for discharge today. Total face to face time:: 35 Mental Status Exam - Mental Status Exam Alert and Oriented to: Time, Place Cognitive Function: Good Patient Appearance: Well Groomed Mood: Hopeful Affect: Appropriate, Mood Congruent Patient Behavior: Appropriate, Cooperative Speech Pattern: Clear, Appropriate Voice Loudness: Normal Thought Process: Goal Oriented Thought Disorder: Not Present Hallucinations: Denies Suicidal Ideation: Denies Homicidal Ideation: Denies Insight/Judgement: Fair Sleep: Fair Appetite: Fair Muscle strength/Tone: Normal Gait/Station: Normal Psychiatric Treatment Plan - Problem List (1) Marihuana dependence Current Visit: No (2) Nicotine dependence Current Visit: No Qualifiers: Nicotine product type: cigarettes Substance use status: in withdrawal Qualified Code(s): F17.213 - Nicotine dependence, cigarettes, with withdrawal (3) Bipolar I disorder, most recent episode depressed Current Visit: Yes (4) Opioid dependence Current Visit: Yes
[2016-08-16] MEDS: NICOTINE 14 MG/24 HOURS TOPICAL PATCH TD SCH (09:51)
[2016-08-16] MEDS: PRENATAL VITAMINS W/ FOLIC ACID TABLET (FP) PO SCH (09:51)
[2016-08-16] MEDS: ESCITALOPRAM OXALATE 20 MG TABLET (FP) PO SCH (09:51)
[2016-08-16] MEDS: hydrOXYzine PAMOATE 50 MG CAPSULE (FP) PO PRN (09:51)
== END 2016-08-16 10:30 | disposition home or self-care (01) | DRG 772 ==
LOC: YASAS 10:54 → Y5N 17:19
PROVIDERS: ADMIT Psychiatry & Neurology Psychiatry; ATTEND Psychiatry & Neurology Psychiatry
PROC: HZ42ZZZ Group Counseling for Substance Abuse Treatment, Cognitive-Behavioral (ICD-10-PCS; principal; 2016-07-30)
DX: F11.20 Opioid dependence, uncomplicated (principal); F12.20 Cannabis dependence, uncomplicated; F17.213 Nicotine dependence, cigarettes, with withdrawal; F31.9 Bipolar disorder, unspecified